=== PATIENT | male | born 1950 | race Two or more races ===

== ENCOUNTER 2022-03-10 20:42 | Inpatient (IN) | payer OTHER ==
[~2022-03-10] VITALS: Ht 162.6 cm; Wt 77.1 kg
[2022-03-10] MEDS ORDERED: SIMVASTATIN5 MG (20:50)
[2022-03-10] MEDS ORDERED: CHILDREN'S ASPI81 MG (20:50)
--- NOTE | 2022-03-10 20:50 | NUR ---
SE RECIBE MASCULINO ALERTA Y ORIENTADO X 3 ESFERAS EN AMBULANCIA EN COMPANIA DE FAMILIAR Y PARAMEDICOS LOS CUALES INDICAN QUE PTE ES UN [facility] POR PANCREATITIS. ACEPTADO POR DR.IVAN SNOWDEN.
[2022-03-13] MEDS ORDERED: CARVEDILOL12.5 M1 (11:07)
[2022-03-13] MEDS ORDERED: GLIMEPIRIDE2 M1 (11:07)
[2022-03-13] MEDS ORDERED: DORZOLAMIDE-TIM10 ML (11:08)
[2022-03-13] MEDS ORDERED: LISINOPRIL40 MG (11:08)
[2022-03-13] MEDS ORDERED: AMLODIPINE BESYL5 MG (11:08)
[2022-03-13] MEDS ORDERED: BUPROPION XL300 MG (11:08)
[2022-03-13] MEDS ORDERED: LOSARTAN POTASS25 MG (11:08)
[2022-03-13] MEDS ORDERED: LATANOPROST2.5 ML (11:08)
[2022-03-13] MEDS ORDERED: GABAPENTIN100 M2 (11:08)
[2022-03-13] MEDS ORDERED: ACEBUTOLOL HCL200 MG (11:08)
[2022-03-13] MEDS ORDERED: HYDROCHLOROTH12.5 MG (11:08)
[2022-03-13] MEDS ORDERED: OFLOXACIN5 ML (11:09)
[2022-03-13] MEDS ORDERED: LANSOPRAZOLE30 MG (11:09)
[2022-03-13] MEDS ORDERED: METOCLOPRAMIDE10 MG (11:09)
[2022-03-13] MEDS ORDERED: TIMOLOL MALEATE5 M4 (11:09)
[2022-03-13] MEDS ORDERED: TAMSULOSIN HCL0.4 MG (11:09)
[2022-03-13] MEDS ORDERED: POLYMYXIN B-TMP10 ML (11:09)
[2022-03-13] MEDS ORDERED: ATROPINE SULFATE2 M1 (11:09)
[2022-03-13] MEDS ORDERED: FAMOTIDINE20 MG (11:09)
[2022-03-13] MEDS ORDERED: BRIMONIDINE TART5 ML (11:12)
== END 2022-03-14 17:32 | disposition home or self-care (01) | DRG 440 ==
LOC: ER 20:42 → SEC-K 22:18 → MEDI 22:18
PROVIDERS: ADMIT Internal Medicine; ATTEND Internal Medicine
PROC: 3E0F7GC Introduction of Other Therapeutic Substance into Respiratory Tract, Via Natural or Artificial Opening (ICD-10-PCS; principal; 2022-03-11)
DX: K85.80 Other acute pancreatitis without necrosis or infection (principal); K80.50 Calculus of bile duct without cholangitis or cholecystitis without obstruction; E80.6 Other disorders of bilirubin metabolism; I10 Essential (primary) hypertension; J44.9 Chronic obstructive pulmonary disease, unspecified; E11.65 Type 2 diabetes mellitus with hyperglycemia; Z20.822 Contact with and (suspected) exposure to COVID-19; Z79.4 Long term (current) use of insulin